=== PATIENT | male | born 1965 | race Caucasian/White ===

== ENCOUNTER 2016-09-09 02:19 | Emergency (ER) | payer BC ==
[~2016-09-09] VITALS: Ht 188 cm; Wt 117.3 kg
[~2016-09-09 02:19] MED LIST: ALTACE10 MG PO; ASPIR-LOW81 MG PO; ASPIRIN EC325 MG PO; CLOPIDOGREL75 MG PO; DEXILANT60 MG PO; FENOFIBRIC ACI135 MG PO; FOLIC ACID0.4 MG PO; GLUCOSAMINE &1 EAC1 PO; MOBIC15 MG PO; NORCO 5/3251 TABLET PO; PERCOCET 5/31 TABLET PO; PLAVIX75 MG PO; PRAMIPEXOLE D0.25 MG PO; SENNA-DOCUSATE1 EAC1 PO; SIMVASTATIN40 MG PO; TOPROL XL50 MG PO; TRAMADOL HCL200 MG PO; VISTARIL25 MG PO; ZINC50 M2 PO
[2016-09-09 03:34] LABS: HEMATOCRIT 42.8 % (38.0-50.0); MCH 32.1 PG (29.0-34.0); MCHC 35.7 G/DL (30.0-36.0); MCV 89.9 FL (86-99); MEAN PLAT.VOLUME 9.9 uM^3 (9.0-12.4); PLATELET COUNT 221 K/uL (156-360); RBC DIS.WIDTH-CV 12.5 % (11.8-14.6); RED BLOOD COUNT 4.76 M/uL (4.00-5.50); WHITE BLOOD COUNT 7.5 K/uL (4.1-10.2)
[2016-09-09 03:49] LABS: CHLORIDE 104 mEq/L (99-109); POTASSIUM 3.7 mEq/L (3.7-5.4); SODIUM 142 mEq/L (136-147)
[2016-09-09 03:51] LABS: GLUCOSE 110 mg/dL (70-99)
[2016-09-09 03:52] LABS: ANION GAP 12 MEQ/L (2-14)
[2016-09-09 03:53] LABS: TOTAL BILIRUBIN 0.6 mg/dL (0.0-1.0)
[2016-09-09 03:54] LABS: ALKALINE PHOSPHATASE 40 IU/L (3-129)
[2016-09-09 03:55] LABS: GFR ESTIMATE (CALCULATED) 52 mL/min/
[2016-09-09 03:56] LABS: UREA NITROGEN (BUN) 21 mg/dL (9-23)
[2016-09-09 04:40] LABS: ADD MIUA? NO; BILIRUBIN NEGATIVE; BLOOD NEGATIVE; COLOR YELLOW ((YELLOW)); GLUCOSE (STRIP) NEGATIVE; KETONES NEGATIVE; LEUKOCYTES NEGATIVE; NITRITE NEGATIVE; PROTEIN (STRIP) NEGATIVE; SPECIFIC GRAVITY 1.008 (1.000-1.030); UCUL ADDED? NO; UROBILINOGEN 0.2 MG/DL (0.2-1.0)
[2016-09-09] MEDS ORDERED: PERCOCET 5/31 TABLET PO (04:50)
[2016-09-09 05:01] VITALS: BP 165/80
== END 2016-09-09 05:02 | disposition home or self-care (01) ==
LOC: EME 02:19
PROVIDERS: Emergency Medicine
DX: N20.0 Calculus of kidney (principal); E78.5 Hyperlipidemia, unspecified; I25.10 Atherosclerotic heart disease of native coronary artery without angina pectoris; I25.2 Old myocardial infarction; Z95.5 Presence of coronary angioplasty implant and graft; Z86.73 Personal history of transient ischemic attack (TIA), and cerebral infarction without residual deficits
CPT/HCPCS: 74176; 80053; 81003; 85027; 99281; 99285; J1885; J2270; J2405; J7030

== ENCOUNTER 2017-12-20 10:37 | Day surgery (SDC) | payer BC ==
[~2017-12-20] VITALS: Ht 188 cm; Wt 116.0 kg
[~2017-12-20 10:37] MED LIST changes: +FOLIC ACID0.8 M1 PO; +PANTOPRAZOLE SO40 MG PO; +RAMIPRIL10 MG PO
[2017-12-20 16:45] VITALS: BP 140/49
[2017-12-20 20:40] VITALS: BP 132/78
[2017-12-21 01:08] VITALS: BP 130/77
[2017-12-21 04:39] VITALS: BP 155/81
[2017-12-21 05:27] LABS: BASOPHIL (%) 0.6 % (0-1); EOSINOPHIL (%) 5.1 % (0-5); EOSINOPHIL COUNT 0.4 K/uL (0-0.3); HEMATOCRIT 42.9 % (38.0-50.0); HEMOGLOBIN 14.9 G/DL (12.5-16.6); IMMATURE GRANULOCYTE (%) 0.3 % (0.0-0.7); LYMPHOCYTE (%) 33.5 % (15-42); LYMPHOCYTE COUNT 2.4 K/uL (1.0-2.8); MCH 31.5 PG (29.0-34.0); MCHC 34.7 G/DL (30.0-36.0); MCV 90.7 FL (86-99); MONOCYTE (%) 9.9 % (3-12); MONOCYTE COUNT 0.7 K/uL (0-0.8); NEUTROPHIL (%) 50.6 % (45-76); NEUTROPHIL COUNT 3.6 K/uL (1.8-6.4); PLATELET COUNT 189 K/uL (156-360); RBC DIS.WIDTH-CV 12.3 % (11.8-14.6); RBC DIS.WIDTH-SD 40.8 % (39-53); RED BLOOD COUNT 4.73 M/uL (4.00-5.50)
[2017-12-21 06:07] LABS: CHLORIDE 103 MEQ/L (99-109); CREATININE 1.1 MG/DL (0.6-1.3); GFR ESTIMATE (CALCULATED) > 59 mL/min/ (58.99-99999); GLUCOSE 85 mg/dL (70-99); SODIUM 135 MEQ/L (136-147); UREA NITROGEN (BUN) 16 mg/dL (9-23)
[2017-12-21 07:15] VITALS: BP 155/85
[2017-12-21] MEDS ORDERED: PLAVIX75 MG PO (08:12)
== END 2017-12-21 15:21 | disposition home or self-care (01) ==
LOC: CATH 10:37 → ENRESERV 12:34 → 4EAST 16:42
PROVIDERS: Internal Medicine Cardiovascular Disease
DX: T82.858A Stenosis of other vascular prosthetic devices, implants and grafts, initial encounter (principal); I25.10 Atherosclerotic heart disease of native coronary artery without angina pectoris; I25.84 Coronary atherosclerosis due to calcified coronary lesion; Z95.5 Presence of coronary angioplasty implant and graft; I10 Essential (primary) hypertension; E78.5 Hyperlipidemia, unspecified; Z79.82 Long term (current) use of aspirin; Z86.73 Personal history of transient ischemic attack (TIA), and cerebral infarction without residual deficits; Z87.442 Personal history of urinary calculi; Y83.1 Surgical operation with implant of artificial internal device as the cause of abnormal reaction of the patient, or of later complication, without mention of misadventure at the time of the procedure
CPT/HCPCS: 80048; 85025; 85347; 93005; C1725; C1769; C1874; C1887; G0378; J0461; J1644; J2250; J3010; J7040

== ENCOUNTER 2018-03-31 09:38 | Emergency (ER) | payer BC ==
[~2018-03-31] VITALS: Ht 190.5 cm; Wt 120.9 kg
[2018-03-31] MEDS ORDERED: AMOXICILLIN500 MG PO (10:14)
[2018-03-31 10:33] VITALS: BP 144/93
== END 2018-03-31 10:35 | disposition home or self-care (01) ==
LOC: EME 09:38
DX: H66.92 Otitis media, unspecified, left ear (principal); I10 Essential (primary) hypertension; E78.5 Hyperlipidemia, unspecified; I25.2 Old myocardial infarction; Z95.5 Presence of coronary angioplasty implant and graft; Z86.73 Personal history of transient ischemic attack (TIA), and cerebral infarction without residual deficits; Z86.718 Personal history of other venous thrombosis and embolism; Z79.82 Long term (current) use of aspirin
CPT/HCPCS: 99281; 99284